=== PATIENT | male | born 1950 | race Caucasian/White ===

== ENCOUNTER 2020-05-11 11:35 | Emergency (ER) | payer MEDICARE, OTHER ==
[~2020-05-11] VITALS: Ht 177.8 cm; Wt 68.0 kg
[2020-05-11] MEDS ORDERED: morphine 4 MG/ML inj SYRINge IV ONE ×2 (12:40→15:00)
[2020-05-11] MEDS ORDERED: folic acid 1mg tablet PO ONE (13:45)
[2020-05-11] MEDS ORDERED: thiamine 100mg/ml 2ml inj. IV ONE (13:45)
[2020-05-11] MEDS ORDERED: folic acid 1mg/0.2ml inj IV ONE (13:45)
[2020-05-11] MEDS ORDERED: normal saline 1000ml 1,000 ML IV ONE (14:07)
[2020-05-11 14:26] LABS: BASOPHILS % (AUTO) 0.6 % (0-1); EOSINOPHILS % (AUTO) 0.2 % (0-6); HEMATOCRIT 38.3 % (42.0-52.0); LYMPHOCYTES # (AUTO) 0.9 X10'3 (1.1-4.8); MEAN CORPUSCULAR HGB CONC 33.9 g/dL (33.0-36.5); MEAN CORPUSCULAR VOLUME 100.3 FL (78-98); MEAN PLATELET VOLUME 7.6 FL (7.4-10.4); MONOCYTES # (AUTO) 0.4 X10'3 (0-0.9); MONOCYTES % (AUTO) 5.2 % (2-12); NEUTROPHILS # (AUTO) 5.4 X10'3 (1.8-7.7); PLATELET COUNT 175 X10'3 (140-440); RED BLOOD COUNT 3.82 X10'6 (4.70-6.10); RED CELL DISTRIBUTION WIDTH 14.3 % (11.5-14.5); WHITE BLOOD COUNT 6.8 X10'3 (4.5-11.0)
[2020-05-11 14:35] LABS: PARTIAL THROMBOPLASTIN TIME 25 SECONDS (22-32)
[2020-05-11 14:37] LABS: ALANINE AMINOTRANSFERASE 33 U/L (12-78); ALBUMIN 3.5 G/DL (3.4-5.0); ALBUMIN/GLOBULIN RATIO 0.9 (1.1-1.5); ALKALINE PHOSPHATASE 54 IU/L (46-116); ANION GAP 12 (8-16); ASPARTATE AMINO TRANSFERASE 30 U/L (10-37); BILIRUBIN,TOTAL 1.2 MG/DL (0.1-1.0); BLOOD UREA NITROGEN 21 MG/DL (7-18); BUN/CREATININE RATIO 26.9 (5.4-32.0); C-REACTIVE PROTEIN 5.06 MG/DL (0.0-0.5); CHLORIDE 104 MMOL/L (99-107); CREATININE 0.78 MG/DL (0.60-1.10); GLUCOSE 143 MG/DL (70-104); POTASSIUM 3.9 MMOL/L (3.5-5.1); SODIUM 140 MMOL/L (135-145); TOTAL CARBON DIOXIDE 24.1 MMOL/L (24-32); TOTAL PROTEIN 7.3 G/DL (6.4-8.2); eGFR > 90 ML/MIN
--- NOTE | 2020-05-11 15:26 | NUR ---
Patient is able to move his right foot. Sensation remains dulled.
[2020-05-11] MEDS ORDERED: morphine 4 MG/ML inj SYRINge IM ONE (16:45)
[2020-05-11] MEDS ORDERED: morphine 4 MG/ML inj SYRINge ONE (16:45)
--- NOTE | 2020-05-11 16:45 | NUR ---
Dr. Erwin contacted by wireless field technician stating the patient is refusing the imaging without additional pain medication. Dr. Erwin requests 4mg morphine IV once be given. Morphine over-ridden from [employer] as medication is not verified.
[2020-05-11] MEDS ORDERED: iohexol 350MG/ML 100ml bottle IV ONE (17:33)
[2020-05-11] MEDS ORDERED: thiamine 100mg tablet PO SCH (20:00)
[2020-05-11] MEDS ORDERED: GADOTERATE MEGLUMINE 7.5 MMOL/15 ML VIAL IV ONE (20:09)
[2020-05-11] MEDS ORDERED: LORazepam 2 mg/ml vial IV ONE (21:35)
[2020-05-11 22:36] VITALS: BP 128/67
== END 2020-05-11 22:38 | disposition short-term general hospital (02) ==
LOC: ER 11:36
DX: G83.9 Paralytic syndrome, unspecified (principal); F10.10 Alcohol abuse, uncomplicated; G95.9 Disease of spinal cord, unspecified; R29.6 Repeated falls; J44.9 Chronic obstructive pulmonary disease, unspecified; F17.200 Nicotine dependence, unspecified, uncomplicated; Y90.0 Blood alcohol level of less than 20 mg/100 ml
CPT/HCPCS: 36415; 70496; 70498; 70553; 72156; 80053; 85025; 85610; 85651; 85730; 86140; 93005; 94150; 96361; 96372; 96374; 96375; 96376; 99291; 99292; A9575; J2060; J2270; J3411; J3490; J7030; Q9967; 99285

== ENCOUNTER 2020-11-25 12:55 | Outpatient (CLI) | payer BC, OTHER ==
[2020-11-25] MEDS ORDERED: barium sulfate 450ml oral suspension ONE (14:00)
== END 2020-11-25 23:59 | disposition home or self-care (01) ==
LOC: RAD 12:55
DX: K21.9 Gastro-esophageal reflux disease without esophagitis (principal); R13.12 Dysphagia, oropharyngeal phase; R47.1 Dysarthria and anarthria
CPT/HCPCS: 74230